=== PATIENT | female | born 1965 | race Caucasian/White ===

== ENCOUNTER 2016-10-23 09:47 | Day surgery (SDC) | payer BC ==
[2016-10-23 11:40] VITALS: TEMP 98
[2016-10-23 11:57] VITALS: RESP 20; O2SAT 100
[2016-10-23 12:05] VITALS: BP 134/89; PULSE 59
== END 2016-10-23 12:25 | disposition home or self-care (01) ==
LOC: SURG 09:47
PROVIDERS: ATTEND Internal Medicine Gastroenterology
DX: Z12.11 Encounter for screening for malignant neoplasm of colon (principal); Z80.0 Family history of malignant neoplasm of digestive organs; K64.8 Other hemorrhoids
CPT/HCPCS: J2001

== ENCOUNTER 2018-03-03 13:37 | Outpatient (CLI) | payer BC, OTHER ==
[2016-10-23 11:57] VITALS: O2SAT 100
== END 2018-03-03 13:38 | disposition home or self-care (01) | DRG 556 ==
LOC: CONVCARE 13:37
PROVIDERS: ATTEND Orthopaedic Surgery
DX: M25.561 Pain in right knee (principal); M23.91 Unspecified internal derangement of right knee
CPT/HCPCS: 73560